=== PATIENT | female | born 1975 | race Two or more races ===

== ENCOUNTER 2021-04-29 08:44 | Outpatient (CLI) | payer OTHER | END 2021-04-29 08:54 | disposition home or self-care (01) | LOC: RX STUDY 08:44 | PROVIDERS: ATTEND Internal Medicine | DX: R13.19 Other dysphagia (principal) ==

== ENCOUNTER 2021-04-30 11:27 | Outpatient (CLI) | payer OTHER | END 2021-04-30 11:39 | disposition home or self-care (01) | LOC: MRI 11:27 | PROVIDERS: ATTEND Internal Medicine | DX: E04.1 Nontoxic single thyroid nodule (principal) | CPT/HCPCS: 70542; A9575 ==

== ENCOUNTER 2021-08-19 13:23 | Outpatient (CLI) | payer OTHER | END 2021-08-19 13:32 | disposition home or self-care (01) | LOC: SONOGRAMA 13:23 | PROVIDERS: ATTEND Internal Medicine Endocrinology, Diabetes & Metabolism | DX: E04.1 Nontoxic single thyroid nodule (principal); E03.8 Other specified hypothyroidism ==